=== PATIENT | male | born 1985 | race Caucasian/White ===

== ENCOUNTER 2016-08-12 20:30 | Emergency (ER) | payer BC ==
[~2016-08-12] VITALS: Ht 175.3 cm; Wt 91.4 kg
[2016-08-12 20:35] VITALS: Ht 175.3 cm; Wt 91.4 kg
--- OUTSIDE RECORDS SUMMARY | 2016-08-12 20:35 | XMS REPORT | Referral Summary ---
Author Author [facility] Organization [facility] Address Unknown Phone Unavailable Care Team Providers Care Drug Worker Name Role Phone Fernando Cartagena Primary Care Physician [phone] Encounter VC Date(s): 03/13/16 - 03/13/16 [facility] [address] [place] [id number] Discharge Diagnosis: Alcohol abuse Discharge Diagnosis: Acid reflux Discharge Diagnosis: Low back pain Discharge Diagnosis: Well adult exam Discharge Diagnosis: Decreased libido Discharge Disposition: 01-Home or Self Care Attending Physician: Fernando Cartagena DO Admitting Physician: Fernando Cartagena DO Vital Signs Most recent to 1 oldest [Reference Range]: Temperature Tympanic 35.7 degC [36.6-38.1 degC] *LOW* (03/13/16 1:32 PM) Peripheral Pulse 64 bpm Rate [60-100 bpm] (03/13/16 1:32 PM) Respiratory Rate 16 br/min [14-20 br/min] (03/13/16 1:32 PM) Blood Pressure 126/70 mmHg [90-140/60-90 mmHg] (03/13/16 1:32 PM) SpO2 97 % (03/13/16 1:32 PM) Problem List Condition Effective Dates Status Health Status Informant Depression(Confirmed Active ) Obesity(Confirmed) Active patient Allergies, Adverse Reactions, Alerts Substance Reaction Severity Status amoxicillin Unknown Severe Active penicillin Unknown Moderate Active Medications cyclobenzaprine 10 mg oral tablet 10 mg 1 tabs, Oral, Bedtime (once a day), as needed for spasm, # 30 tabs, 3 Refill(s), Pharmacy: [facility] #[id number], 1 tabs Oral Bedtime (once a day), PRN:as needed for spasm Start Date: 03/13/16 Stop Date: 04/13/16 Status: Ordered Results Hematology Most recent to 1 oldest [Reference Range]: WBC [4.8-10.8 7.4 10*3/uL 10*3/uL] (03/13/16 2:35 PM) RBC [4.60-6.20] 5.04 (03/13/16 2:35 PM) Hgb [14.0-18.0 16.5 gm/dL gm/dL] (03/13/16 2:35 PM) Hct [42.0-52.0 %] 44.9 % (03/13/16 2:35 PM) MCV [82.0-99.0 fL] 89.1 fL (03/13/16 2:35 PM) MCH [27.0-32.0 pg] 32.7 pg *HI* (03/13/16 2:35 PM) MCHC [32.0-36.0 36.7 gm/dL gm/dL] *HI* (03/13/16 2:35 PM) RDW [11.5-14.5 %] 12.4 % (03/13/16 2:35 PM) Platelet [150-400 320 10*3/uL 10*3/uL] (03/13/16 2:35 PM) MPV [8.8-14.8 fL] 10.8 fL (03/13/16 2:35 PM) Immature 0.3 % Granulocytes (03/13/16 2:35 PM) [0.0-1.0 %] Neutrophils [51-75 61 % %] (03/13/16 2:35 PM) Lymphocytes [20-46 27 % %] (03/13/16 2:35 PM) Monocytes [4-11 %] 11 % (03/13/16 2:35 PM) Eosinophils [0-4 %] 1 % (03/13/16 2:35 PM) Basophils [0-2 %] 0 % (03/13/16 2:35 PM) Neutro Absolute 4.53 10*3 [1.90-7.00 10*3] (03/13/16 2:35 PM) Lymph Absolute 2.00 10*3 [0.80-3.30 10*3] (03/13/16 2:35 PM) [place] Absolute 0.80 10*3 [0.30-1.00 10*3] (03/13/16 2:35 PM) Eos Absolute 0.05 10*3 [0.00-0.50 10*3] (03/13/16 2:35 PM) Baso Absolute 0.02 10*3 [0.00-0.20 10*3] (03/13/16 2:35 PM) Chemistry Most recent to 1 oldest [Reference Range]: Sodium Lvl [135-144 139 mEq/L mEq/L] (03/13/16 2:35 PM) Potassium Lvl 4.3 mEq/L [3.5-5.2 mEq/L] (03/13/16 2:35 PM) Chloride [99-111 104 mEq/L mEq/L] (03/13/16 2:35 PM) CO2 [23-31 mEq/L] 26 mEq/L (03/13/16 2:35 PM) AGAP [3-20] 9 (03/13/16 2:35 PM) BUN [9-21 mg/dL] 8 mg/dL *LOW* (03/13/16 2:35 PM) Glucose Lvl [70-99 97 mg/dL mg/dL] (03/13/16 2:35 PM) Creatinine Lvl 1.11 mg/dL [0.72-1.25 mg/dL] (03/13/16 2:35 PM) eGFR [>60 mL/min] >60 mL/min 1 (03/13/16 2:35 PM) Calcium Lvl 9.4 mg/dL [8.9-10.5 mg/dL] (03/13/16 2:35 PM) Albumin Lvl [3.5-5.0 4.6 gm/dL gm/dL] (03/13/16 2:35 PM) Total Protein 7.0 gm/dL [6.1-7.7 gm/dL] (03/13/16 2:35 PM) Globulin [1.8-4.0 2.4 gm/dL gm/dL] (03/13/16 2:35 PM) ALT [0-55 U/L] 115 U/L *HI* (03/13/16 2:35 PM) AST [5-34 U/L] 49 U/L *HI* (03/13/16 2:35 PM) Alk Phos [40-150 70 U/L U/L] (03/13/16 2:35 PM) Bili Total [0.2-1.2 0.5 mg/dL mg/dL] (03/13/16 2:35 PM) TSH with Reflex Free 0.59 T4 [0.35-4.94] (03/13/16 2:35 PM) 1Result Comment: Multiply eGFR results by 1.21 for race. Immunizations Vaccine Date Refusal Reason hepatitis B pediatric vaccine 12/01/98 hepatitis B pediatric vaccine 01/19/98 measles/mumps/rubella virus vaccine 11/15/97 tetanus-diphth toxoids (Td) adult/adol 12/21/97 Procedures No data available for this section Social History Social History Type Response Smoking Status Former smoker; Type: Cigarettes; Type: Cigars; Stopped at age : 26 Assessment and Plan Extracted from: Title: Office Visit Note Author: Fernando Cartagena DO Date: 03/13/16 Assessment/Plan 1.Decreased libido 1. This is likely psychogenic in nature. 2. Pending labs for diabetes and thyroid dysfunction are pending 3. Recommended healthy lifestyle changes regarding his diet and daily exercise. Acid reflux 1. Avoid offending foods and drinks. 2. Omeprazole 20 mg daily. 3. Follow-up if worsening. Alcohol abuse 1. Recommended decreasing salt consumption to a maximum of 2 drinks per day. 2. This might be contributing to his GI symptoms in addition to his libido this was discussed in detail with the patient. Ordered: CBC w/ Differential Comprehensive Metabolic Panel Hemoglobin A1c Periodic Comp Preventive Med 18 to 39 years Est 51930 Low back pain 1. Clinical findings consistent with lumbar strain 2. Stretching exercises recommended. 3. Tylenol for discomfort. 4. Prescription sent out for cyclobenzaprine to use as needed. 5. I do not think [place] use at this point is indicated or appropriate for this patient given his history of polysubstance abuse. 6. Weight loss recommended. 7. If symptoms worsen or do not improve then we may consider sending him to physical therapy. Ordered: CBC w/ Differential Periodic Comp Preventive Med 18 to 39 years Est 53951 Well adult exam 1. This is a well-developed well-nourished 31-year-old in relatively good health. 2. Accommodations as above. 3. He declined flu and tetanus vaccination. 4. Follow-up yearly for wellness visit. Ordered: CBC w/ Differential Comprehensive Metabolic Panel Hemoglobin A1c Periodic Comp Preventive Med 18 to 39 years Est 98062 TSH with Reflex Free T4
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
[2016-08-12] MEDS ORDERED: OXYC1TAB66 PO (20:44)
[2016-08-12] MEDS ORDERED: HYDROMORPHONE 2mg/ml INJECTION IM ONE (20:45)
[2016-08-12] MEDS ORDERED: KETOROLAC 60mg/2ml INJECTION IM ONE (20:45)
[2016-08-12] MEDS ORDERED: NO ROUTINE MEDS (20:48)
[2016-08-12 21:33] VITALS: BP 150/60; PULSE 75; RESP 19; TEMP 98; O2SAT 98
== END 2016-08-12 21:33 | disposition home or self-care (01) ==
LOC: ED 20:30
DX: T23.261A Burn of second degree of back of right hand, initial encounter (principal); T31.0 Burns involving less than 10% of body surface; X03.0XXA Exposure to flames in controlled fire, not in building or structure, initial encounter; Y93.G2 Activity, grilling and smoking food; Y92.008 Other place in unspecified non-institutional (private) residence as the place of occurrence of the external cause; Y99.8 Other external cause status
CPT/HCPCS: 96372; 99283; J1170; J1885